=== PATIENT | female | born 1960 | race Caucasian/White ===

== ENCOUNTER 2018-11-23 08:07 | Outpatient (CLI) | payer OTHER | END 2018-11-23 08:29 | disposition home or self-care (01) | LOC: NUCLEAR 08:07 | DX: I87.2 Venous insufficiency (chronic) (peripheral) (principal) ==

== ENCOUNTER 2019-09-23 15:17 | Outpatient (CLI) | payer OTHER | END 2019-09-23 15:29 | disposition home or self-care (01) | LOC: RAD 15:17 | DX: M76.71 Peroneal tendinitis, right leg (principal) ==